=== PATIENT | female | born 1945 | race Caucasian/White ===

== ENCOUNTER 2018-05-01 05:03 | Emergency (ER) | payer OTHER ==
[~2018-05-01] VITALS: Ht 157.5 cm; Wt 78.0 kg
[2018-05-01 05:10] VITALS: Ht 157.5 cm; Wt 78.0 kg
[2018-05-01 06:57] VITALS: BP 152/77
== END 2018-05-01 07:04 | disposition home or self-care (01) ==
LOC: ED 05:03
DX: I10 Essential (primary) hypertension (principal)

== ENCOUNTER 2018-05-03 23:13 | Emergency (ER) | payer OTHER ==
[~2018-05-03] VITALS: Ht 157.5 cm; Wt 77.6 kg
[2018-05-04 00:04] LABS: BASOPHIL % 0.4 % (0-2); PLATELET COUNT 165 x10^3mcL (130-400); RED CELL DISTRIBUTION WIDTH 13.8 % (11.5-14.5)
[2018-05-04 00:20] LABS: CALCIUM 9.1 mg/dL (8.5-10.1); CARBON DIOXIDE 29.8 mmol/L (21-32); CHLORIDE SERUM 107 mmol/L (98-107); CREATININE SERUM 0.9 mg/dL (0.6-1.0); GLUCOSE SERUM 133 mg/dL (74-106); SODIUM SERUM 142 mmol/L (136-145)
[2018-05-04 00:25] LABS: ALBUMIN 3.4 g/dL (3.4-5.0); ALKALINE PHOSPHATASE 119 U/L (46-116); ALT/SGPT 15 U/L (14-59); AST/SGOT 13 U/L (15-37); BILIRUBIN TOTAL 0.3 mg/dL (0.20-1.00); TOTAL PROTEIN, SERUM 7.9 g/dL (6.4-8.2)
[2018-05-04 00:44] LABS: UA SPECIFIC GRAVITY <=1.005 (1.005-1.035); microscopic required? YES; urine erythrocyte 1+ (NEGATIVE)
[2018-05-04 01:51] VITALS: BP 144/68
== END 2018-05-04 01:51 | disposition home or self-care (01) ==
LOC: ED 23:13
PROVIDERS: Emergency Medicine
DX: N39.0 Urinary tract infection, site not specified (principal); I10 Essential (primary) hypertension
CPT/HCPCS: 36415

== ENCOUNTER 2018-07-20 20:58 | Emergency (ER) | payer OTHER ==
[2018-07-20 21:40] LABS: BASOPHIL % 0.5 % (0-2); PLATELET COUNT 176 x10^3mcL (130-400); RED CELL DISTRIBUTION WIDTH 13.3 % (11.5-14.5)
[2018-07-20 21:53] LABS: CALCIUM 9.1 mg/dL (8.5-10.1); CARBON DIOXIDE 28.9 mmol/L (21-32); CHLORIDE SERUM 103 mmol/L (98-107); CREATININE SERUM 1.1 mg/dL (0.6-1.0); GLUCOSE SERUM 120 mg/dL (74-106); POTASSIUM SERUM 3.9 mmol/L (3.5-5.1); SODIUM SERUM 137 mmol/L (136-145)
[2018-07-20 21:57] LABS: ALBUMIN 3.6 g/dL (3.4-5.0); ALKALINE PHOSPHATASE 128 U/L (46-116); ALT/SGPT 16 U/L (14-59); AST/SGOT 9 U/L (15-37); BILIRUBIN TOTAL 0.33 mg/dL (0.20-1.00)
[2018-07-20 22:56] VITALS: BP 136/76
== END 2018-07-20 22:56 | disposition home or self-care (01) ==
LOC: ED 20:58
PROVIDERS: Emergency Medicine
DX: I10 Essential (primary) hypertension (principal); K21.9 Gastro-esophageal reflux disease without esophagitis
CPT/HCPCS: 36415